=== PATIENT | male | born 1985 | race Caucasian/White ===

== ENCOUNTER 2016-09-10 16:13 | Emergency (ER) ==
[2016-09-10 16:19] VITALS: BP 145/88; TEMP 98.4; BMI 22.3
--- NOTE | 2016-09-10 16:43 | ED.PDOC ---
General ED Provider: Dr. REDD ALBERTO Chief Complaint: Hand Pain/Injury Stated Complaint: right hand, wrist pain Time Seen by Physician: 16:14 (fall) Mode of Arrival: Walk-In Information Source: Patient Nursing and Triage Documentation Reviewed and Agree: Yes Review of Systems - Review Of Systems Constitutional: Reports: No symptoms Eyes: Reports: No symptoms Ears, Nose, Mouth, Throat: Reports: No symptoms Respiratory: Reports: No symptoms Cardiac: Reports: No symptoms GI: Reports: No symptoms : Reports: No symptoms Musculoskeletal: Reports: Joint pain (right hand , wrist) Skin: Reports: No symptoms Neurological: Reports: No symptoms Endocrine: Reports: No symptoms Hematologic/Lymphatic: Reports: No symptoms All Other Systems: Reviewed and Negative Past Medical History - Past Medical History Previously Healthy: Yes Endocrine: Reports: None Cardiovascular: Reports: None Respiratory: Reports: None Hematological: Reports: None Gastrointestinal: Reports: None Genitourinary: Reports: None Neuro/Psych: Reports: None Musculoskeletal: Reports: None Cancer: Reports: None - Surgical History General Surgical History: Reports: None - Family History Family History: Reports: Unknown - Social History Smoking Status: Current some day smoker Hx Substance Use: No Alcohol Screening: None - Immunizations Tetanus Shot up to Date: Yes Physical Exam - Physical Exam Appearance: Well-appearing, No pain distress, Well-nourished Eyes: BLAYNE, EOMI, Conjunctiva clear ENT: Ears normal, Nose normal, Oropharynx normal Respiratory: Airway patent, Breath sounds clear, Breath sounds equal, Respirations nonlabored Cardiovascular: RRR, Pulses normal, No rub, No murmur GI/: Soft, Nontender, No masses, Bowel sounds normal, No Organomegaly Musculoskeletal: Limited ROM (4th, 5th digits tender limited range of motion , right elbow and shoulder are WNL) Skin: Warm, Dry, Normal color Neurological: Sensation intact, Motor intact, Reflexes intact, Cranial nerves intact, Alert, Oriented Psychiatric: Affect appropriate, Mood appropriate Critical Care Note - Critical Care Note Total Time (mins): 0 Course - Course Orders, Labs, Meds: Orders Category Date Time Status HAND, RIGHT 3 VIEWS Stat RADS 09/10/16 16:42 Ordered WRIST, RIGHT 3 VIEWS Stat RADS 09/10/16 16:42 Ordered Vital Signs: Temp Pulse Resp BP Pulse Ox 09/10/16 16:14 98.4 F 87 16 145/88 H 98 Departure - Departure Time of Disposition: 18:00 (BOXERS FRACTURE DISCUSSED AND FILM SHOWN TO PT GARFIELD HARRIS PRESENT ALONG WITH DEZ FOFANA GIVEN) Disposition: HOME SELF-CARE Discharge Problem: Injury of hand, Boxer's fracture Sprain of hand, right Qualifiers: Encounter type: initial encounter Qualifier Code: (S63.91XA) Sprain of unspecified part of right wrist and hand, initial encounter Sprain of wrist, right Qualifiers: Encounter type: initial encounter Qualifier Code: (S63.501A) Unspecified sprain of right wrist, initial encounter Instructions: Hand Sprain (ED), Wrist Sprain (ED), Wrist Fracture in Adults (ED ) Condition: Good Pt referred to PMD for follow-up: No Additional Instructions: Please call your Family Physician as soon as possible to schedule a follow-up appointment.YOU MUST SEE [facility] HAVE A BOXERS TYPE FRACTURE Prescriptions: Hydrocodone/Acetaminophen [Lead 5-325 Tablet] 1 each PO Q6HR PRN #12 tablet PRN Reason: PAIN Allergies/Adverse Reactions: Allergies No Known Allergies Allergy (Unverified 06/15/14 06:27) Home Medications: Ambulatory Orders Hydrocodone/Acetaminophen [Lead 5-325 Tablet] 1 each PO Q6HR PRN #12 tablet
--- NOTE | 2016-09-11 07:08 | DI ---
EXAM: Right wrist three-view HISTORY: Fall COMPARISON: None FINDINGS: There is a mildly displaced fracture of the proximal aspect fifth metacarpal with mild vo lar angulation of the distal fracture fragment. Remainder of the bones and joints are normal. There is soft tissue swelling laterally. IMPERSSION: Mildly displaced fracture of the fifth metacarpal.
--- NOTE | 2016-09-11 07:08 | DI ---
EXAM: Right hand three-view HISTORY: Trauma, fall COMPARISON: None FINDINGS: There is a mildly displaced fracture of the proximal aspect fifth metacarpal with mild vo lar angulation of the distal fracture fragment. Remainder of the bones and joints are normal. There is soft tissue swelling laterally. IMPERSSION: Mildly displaced fracture of the fifth metacarpal. Report faxed at time of dictation.
== END 2016-09-10 17:29 | disposition home or self-care (01) ==
LOC: ED 16:13
DX: S62.336A Displaced fracture of neck of fifth metacarpal bone, right hand, initial encounter for closed fracture (principal); S63.91XA Sprain of unspecified part of right wrist and hand, initial encounter; W19.XXXA Unspecified fall, initial encounter; F17.210 Nicotine dependence, cigarettes, uncomplicated
CPT/HCPCS: 99283

== ENCOUNTER 2017-05-11 10:30 | Emergency (ER) ==
[2017-05-11 10:36] VITALS: BP 113/52; TEMP 98.9
[2017-05-11] MEDS ORDERED: DUONEB NEB STA (10:54)
[2017-05-11] MEDS ORDERED: SOLU-MEDROL 125 MG IVP STA (10:54)
[2017-05-11 11:12] LABS: BASOPHILS % (AUTO) 0.5 % (0.0-3.0); EOSINOPHILS # (AUTO) 0.4 K/ul (0.0-0.7); HEMATOCRIT 43.7 % (42.0-52.0); HEMOGLOBIN 15.5 g/dl (14.0-18.0); IMMATURE GRANULOCYTE % (AUTO) 0.1 % (0.0-5.0); LYMPHOCYTES # (AUTO) 2.2 K/uL (0.60-3.4); LYMPHOCYTES % (AUTO) 29.3 (10.0-50.0); MEAN CORPUSCULAR HEMOGLOBIN 31.5 pg (27.0-31.0); MEAN CORPUSCULAR HGB CONC 35.5 (31.8-35.4); MEAN CORPUSCULAR VOLUME 88.8 fl (80.0-94.0); NEUTROPHILS # (AUTO) 3.9 K/ul (2.0-6.9); NEUTROPHILS % (AUTO) 52.1; PLATELET COUNT 178 10^3/uL (140-440); RED BLOOD COUNT 4.92 10^6/ul (4.70-6.10); WHITE BLOOD COUNT 7.54 K/ul (4.2-10.2)
--- NOTE | 2017-05-11 11:14 | DI ---
EXAM: PA and lateral views of the chest HISTORY: Short of breath COMPARISON: Chest Xray from 11/25/2007 FINDINGS: Lungs are clear with no lobar consolidation, failure, large effusion or significant atelec tasis. Cardiac and mediastinal silhouettes are unremarkable. No acute osseous or soft tissue abnorma lities. IMPRESSION: No active disease.
[2017-05-11 11:31] LABS: ALBUMIN 4.6 g/dL (3.4-5.0); ALBUMIN/GLOBULIN RATIO 1.39; ANION GAP 17.6; BILIRUBIN,TOTAL 0.27 mg/dL (0.00-1.20); BUN/CREATININE RATIO 8.13; CALCIUM 10.5 mg/dL (8.2-10.2); CREATININE 1.23 mg/dL (0.60-1.10); POTASSIUM 3.6 mmol/L (3.5-5.1); TOTAL PROTEIN 7.9 g/dL (6.4-8.2)
--- NOTE | 2017-05-11 12:00 | ED.PDOC ---
General ED Provider: Dr. KAIA MONTEZ Chief Complaint: Cough Stated Complaint: Pateint is a 31 year old male who states he has a history of anxiety comes to the Er with Head cold and conjestion starting yesterday. This morning he felt worse with difficulty breathing. Used sons inhailer but did not imrpove. Admits to smoking. Time Seen by Physician: 10:45 Mode of Arrival: Walk-In Information Source: Patient Exam Limitations: No limitations Nursing and Triage Documentation Reviewed and Agree: Yes Review of Systems - Review Of Systems Constitutional: Reports: Chills, Sweats Eyes: Reports: No symptoms Ears, Nose, Mouth, Throat: Reports: No symptoms Respiratory: Reports: Cough, Short of air, Wheezing Cardiac: Reports: No symptoms GI: Reports: No symptoms : Reports: No symptoms Musculoskeletal: Reports: No symptoms Skin: Reports: No symptoms Neurological: Reports: Anxiety Endocrine: Reports: No symptoms Hematologic/Lymphatic: Reports: No symptoms All Other Systems: Reviewed and Negative Past Medical History - Past Medical History Previously Healthy: Yes Endocrine: Reports: None Cardiovascular: Reports: None Respiratory: Reports: None Hematological: Reports: None Gastrointestinal: Reports: None Genitourinary: Reports: None Neuro/Psych: Reports: None Musculoskeletal: Reports: None Cancer: Reports: None - Surgical History General Surgical History: Reports: None - Family History Family History: Reports: Unknown - Social History Smoking Status: Current every day smoker, Light tobacco smoker Hx Substance Use: No Alcohol Screening: None Physical Exam - Physical Exam Appearance: Ill-appearing, Thin Eyes: BLAYNE, EOMI, Conjunctiva clear Neck: Supple Respiratory: Breath sounds equal, Breath sounds diminished, Respirations nonlabored, Wheezes Cardiovascular: Pulses normal, No rub, No murmur, Tachycardia GI/: Soft, Nontender, No masses, Bowel sounds normal, No Organomegaly Musculoskeletal: Normal strength, ROM intact, No edema, No calf tenderness Skin: Warm, Dry, Normal color Neurological: Sensation intact, Motor intact, Cranial nerves intact, Alert, Oriented Psychiatric: Affect appropriate, Mood appropriate Critical Care Note - Critical Care Note Total Time (mins): 0 Course - Course Hematology/Chemistry: 05/11/17 11:05 05/11/17 11:05 Orders, Labs, Meds: Lab Review 05/11/17 05/11/17 11:05 11:05 WBC 7.54 RBC 4.92 Hgb 15.5 Hct 43.7 MCV 88.8 MCH 31.5 H MCHC 35.5 H RDW Coeff of Renetta 12.9 Plt Count 178 Immature Gran % (Auto) 0.1 Neut % (Auto) 52.1 Lymph % (Auto) 29.3 [place] % (Auto) 13.0 H Eos % (Auto) 5.0 Baso % (Auto) 0.5 Immature Gran # (Auto) 0.0 Neut # 3.9 Lymph # 2.2 [place] # 1.0 Eos # 0.4 Baso # 0.0 Sodium 139 Potassium 3.6 Chloride 102 Carbon Dioxide 23 Anion Gap 17.6 BUN 10 Creatinine 1.23 H Estimated GFR (MDRD) 70.00 BUN/Creatinine Ratio 8.13 Glucose 103 H Calcium 10.5 H Total Bilirubin 0.27 AST 15 ALT 12 Alkaline Phosphatase 85 Total Protein 7.9 Albumin 4.6 Globulin 3.3 Albumin/Globulin Ratio 1.39 Orders Category Date Time Status NEBULIZER TREATMENT Stat CARDIO 05/11/17 10:55 Completed CBC W/ AUTO DIFF Stat LAB 05/11/17 11:05 Completed COMPREHENSIVE METABOLIC PANEL Stat LAB 05/11/17 11:05 Completed Ipratropium/Albuterol Neb [Duoneb] MEDS 05/11/17 10:54 Discontinued 1 vial NEB ONCE STA Methylprednisolone Sod Succ/Pf [Solu-Medrol 125 mg] MEDS 05/11/17 10:54 Discontinued 125 mg IVP ONCE STA CHEST, 2 VIEWS PA & LAT Stat RADS 05/11/17 10:57 Completed Medications Discontinued Medications Generic Name Dose Route Start Last Admin Trade Name Freq PRN Reason Stop Dose Admin Albuterol/Ipratropium 1 vial 05/11/17 10:54 05/11/17 11:05 Duoneb NEB 05/11/17 10:55 1 vial ONCE STA Administration Methylprednisolone Sodium Succinate 125 mg 05/11/17 10:54 05/11/17 11:16 Solu-Medrol 125 Mg IVP 05/11/17 10:55 125 mg ONCE STA Administration Vital Signs: Temp Pulse Resp BP Pulse Ox 05/11/17 10:30 98.9 F 119 H 24 113/52 L 99 Departure - Departure Time of Disposition: 11:58 Disposition: HOME SELF-CARE Discharge Problem: Bronchitis URI (upper respiratory infection) Qualifiers: URI type: unspecified viral URI Qualified Code(s): J06.9 - Acute upper respiratory infection, unspecified Instructions: How to Stop Smoking (ED), Acute Bronchitis (ED) Condition: Fair Pt referred to PMD for follow-up: Yes Additional Instructions: STOP smoking Take medications as prescribed Follow up with PCP in 3 days. Prescriptions: Albuterol Sulfate [Proair Hfa] 2 puff IH Q6H PRN #1 puff PRN Reason: Wheezing Azithromycin [Zithromax] 250 mg PO DIRECTED #6 tablet Methylprednisolone [Medrol Dosepak] 4 mg PO DIRECTED #1 pkg Allergies/Adverse Reactions: Allergies No Known Allergies Allergy (Verified 05/11/17 10:37) Home Medications: Ambulatory Orders Albuterol Sulfate [Proair Hfa] 2 puff IH Q6H PRN #1 puff 05/11/17 Azithromycin [Zithromax] 250 mg PO DIRECTED #6 tablet 05/11/17 Methylprednisolone [Medrol Dosepak] 4 mg PO DIRECTED #1 pkg 05/11/17 Disposition Discussed With: Patient
== END 2017-05-11 12:10 | disposition home or self-care (01) ==
LOC: ED 10:30
DX: J20.9 Acute bronchitis, unspecified (principal); J06.9 Acute upper respiratory infection, unspecified; F17.210 Nicotine dependence, cigarettes, uncomplicated
CPT/HCPCS: 36415; 80053; 85025; 94640; 96374; 99283

== ENCOUNTER 2017-05-16 12:15 | Emergency (ER) ==
[2017-05-16 12:23] VITALS: BP 132/89; TEMP 99.6; BMI 19.0
--- NOTE | 2017-05-16 13:12 | DI ---
EXAM: PA and lateral views of the chest HISTORY: Cough. COMPARISON: Chest x-ray 05/11/2017 and 11/25/2007 FINDINGS: The cardiomediastinal silhouette is normal. There is no pneumothorax or pleural effusion. There is no consolidation, nodule or mass. The osseous structures are unremarkable. IMPRESSION: No acute cardiopulmonary process
[2017-05-16 13:19] LABS: BASOPHILS % (AUTO) 0.2 % (0.0-3.0); EOSINOPHILS # (AUTO) 0.1 K/ul (0.0-0.7); EOSINOPHILS % (AUTO) 0.6 % (0.0-7.0); HEMATOCRIT 42.5 % (42.0-52.0); HEMOGLOBIN 15.7 g/dl (14.0-18.0); IMMATURE GRANULOCYTE % (AUTO) 0.3 % (0.0-5.0); LYMPHOCYTES # (AUTO) 2.5 K/uL (0.60-3.4); LYMPHOCYTES % (AUTO) 29.2 (10.0-50.0); MEAN CORPUSCULAR HEMOGLOBIN 31.4 pg (27.0-31.0); MEAN CORPUSCULAR HGB CONC 36.9 (31.8-35.4); MONOCYTES # (AUTO) 0.6 K/uL (0.4-2.0); MONOCYTES % (AUTO) 7.2 (0-10); NEUTROPHILS # (AUTO) 5.4 K/ul (2.0-6.9); NEUTROPHILS % (AUTO) 62.5; PLATELET COUNT 213 10^3/uL (140-440)
[2017-05-16 13:19] LABS: ABG PCO2 18.2 mmHg (35-45); ABG PH 7.587 (7.35-7.45)
[2017-05-16 13:20] LABS: ABG BASE EXCESS -4 (-2.0-2.0); ABG HCO3 17.3 (22.0-26.0); ABG TCO2 18 (22.0-28.0)
[2017-05-16 13:37] LABS: ALBUMIN 4.7 g/dL (3.4-5.0); ALBUMIN/GLOBULIN RATIO 1.52; ANION GAP 16.5; BILIRUBIN,TOTAL 0.83 mg/dL (0.00-1.20); BUN/CREATININE RATIO 14.63; CALCIUM 10.2 mg/dL (8.2-10.2); CREATININE 1.23 mg/dL (0.60-1.10); POTASSIUM 3.5 mmol/L (3.5-5.1); TOTAL PROTEIN 7.8 g/dL (6.4-8.2)
[2017-05-16 13:54] LABS: BILIRUBIN,URINE Negative (NEGATIVE); KETONES,URINE 2+ (NEGATIVE); LEUKOCYTE ESTERASE ,URINE Negative (NEGATIVE); NITRITE,URINE Negative (NEGATIVE); PH,URINE 7.5 (5-9); PROTEIN,URINE Trace (NEGATIVE); URINE, BLOOD Negative (NEGATIVE)
[2017-05-16 13:55] LABS: ADD URINE MICROSCOPIC YES
[2017-05-16 13:56] LABS: ABG BASE EXCESS -3 (-2.0-2.0); ABG HCO3 17.7 (22.0-26.0); ABG PCO2 16.9 mmHg (35-45); ABG PH 7.629 (7.35-7.45); ABG TCO2 18 (22.0-28.0)
[2017-05-16 13:58] LABS: COCAIN SCREEN,URINE NEGATIVE (NEGATIVE)
--- NOTE | 2017-05-16 15:29 | CT ---
EXAM: CTA of the chest. History: Short of breath Comparison: Chest radiograph 05/16/2017 Technique: Multiplanar CT images through the thorax were obtained following administration of IV con trast. MIP images and 3-D reconstructions were also acquired. Findings: Heart size is normal. No pericardial effusion. No pathologically enlarged thoracic lymph nodes. Great vessels are not well opacified but appear unremarkable. No pulmonary arterial filling defects. No consolidation. No pleural fluid and no pneumothorax. No suspicious lung nodules or lung masses. Within the visualized upper abdomen, no acute findings. No acute osseous abnormalities. Small round sclerotic lesion within the T9 vertebral body is nonspecific but probably represents a bone island Impression: 1. No pulmonary embolism. 2. No acute intrathoracic process.
--- NOTE | 2017-05-16 15:35 | ED.PDOC ---
General ED Provider: Dr. REDD ALBERTO Chief Complaint: Shortness of Air Stated Complaint: shortness of breath, anxious Time Seen by Physician: 12:22 (seen with dilip at all times ) Mode of Arrival: Walk-In Information Source: Patient Exam Limitations: No limitations [facility] Nursing and Triage Documentation Reviewed and Agree: Yes Respiratory Complaint Exam - Shortness of Air Complaint/Exam Onset/Duration: 2 days Symptoms Are: Still present Timing: Constant Initial Severity: Mild Current Severity: Mild Aggravating: Reports: None Alleviating: Reports: Spontaneous resolution Associated Signs and Symptoms: Reports: Cough Related History: Reports: Similar episode History of Healthcare-Acquired Pneumonia: No Pulmonary Embolism Risk Factors: Reports: None Cardiac Risk Factors: Reports: None Pseudomonas Risk Factors: Reports: None Tuberculosis Risk Factors: Reports: None Home Oxygen Use: No Recent Stress Test: No Recent Echo/LV Function: No Respiratory Distress: None Stridor Present: No Tracheal Deviation: No Subcutaneous Emphysema: No Accessory Muscle Use: No Retractions: Not Present Diminished Breath Sounds: No Prolonged Expiratory Phase: No Unable to Speak Full Sentences: No Fatigue: No Leg Swelling: No Seamus's Sign Present: No Grunting Respirations: No Kussmaul Respirations: No Differential Diagnoses: Pulmonary Edema, Pneumonia, Pneumothorax, Pulmonary Embolism, Bronchitis, URI Review of Systems - Review Of Systems Constitutional: Reports: No symptoms Eyes: Reports: No symptoms Ears, Nose, Mouth, Throat: Reports: No symptoms Respiratory: Reports: Short of air Cardiac: Reports: No symptoms GI: Reports: No symptoms : Reports: No symptoms Musculoskeletal: Reports: No symptoms Skin: Reports: No symptoms Neurological: Reports: Anxiety Endocrine: Reports: No symptoms Hematologic/Lymphatic: Reports: No symptoms All Other Systems: Reviewed and Negative Past Medical History - Past Medical History Previously Healthy: Yes Endocrine: Reports: None Cardiovascular: Reports: None Respiratory: Reports: None Hematological: Reports: None Gastrointestinal: Reports: None Genitourinary: Reports: None Neuro/Psych: Reports: None Musculoskeletal: Reports: None Cancer: Reports: None - Surgical History General Surgical History: Reports: None - Family History Family History: Reports: Unknown - Social History Smoking Status: Former smoker, Light tobacco smoker Hx Substance Use: No Alcohol Screening: Occasionally Physical Exam - Physical Exam Appearance: Well-appearing, No pain distress, Well-nourished Eyes: BLAYNE, EOMI, Conjunctiva clear ENT: Ears normal, Nose normal, Oropharynx normal Respiratory: Airway patent, Breath sounds clear, Breath sounds equal, Respirations nonlabored Cardiovascular: RRR, Pulses normal, No rub, No murmur GI/: Soft, Nontender, No masses, Bowel sounds normal, No Organomegaly Musculoskeletal: Normal strength, ROM intact, No edema, No calf tenderness Skin: Warm, Dry, Normal color Neurological: Sensation intact, Motor intact, Reflexes intact, Cranial nerves intact, Alert, Oriented Psychiatric: Affect appropriate, Mood appropriate Interpretation - Radiology Interpretation Radiology Interpretation By: Radiologist Radiology Results: Negative Exam Interpreted: CXR, CT Scan Re-Evaluation - Re-Evaluation Time of Re-Evaluation: 14:00 (bibi at bedside discussed postive drug screen for Methamph pt denied using any drugs) Status: Improved Vital Signs Stable: Yes Pain Level: 0 Appearance: NAD Lungs: Clear Skin: Warm and Dry Neuro: Alert and Oriented X3 CV: RRR - Re-Evaluation Time of Re-Evaluation: 15:37 (bibi at bedside discussed ct scan results and ABG ) Status: Improved Vital Signs Stable: Yes Pain Level: 0 Appearance: NAD Skin: Warm and Dry Neuro: Alert and Oriented X3 CV: RRR Critical Care Note - Critical Care Note Total Time (mins): 0 Course - Course Hematology/Chemistry: 05/16/17 13:03 05/16/17 13:03 Orders, Labs, Meds: Lab Review 05/16/17 05/16/17 05/16/17 12:53 13:03 13:03 WBC 8.70 RBC 5.00 Hgb 15.7 Hct 42.5 MCV 85.0 MCH 31.4 H MCHC 36.9 H RDW Coeff of Renetta 12.8 Plt Count 213 Immature Gran % (Auto) 0.3 Neut % (Auto) 62.5 Lymph % (Auto) 29.2 [place] % (Auto) 7.2 Eos % (Auto) 0.6 Baso % (Auto) 0.2 Immature Gran # (Auto) 0.0 Neut # 5.4 Lymph # 2.5 [place] # 0.6 Eos # 0.1 Baso # 0.0 D-Dimer (Manual) Puncture Site Rrad O2 Saturation 86.0 L ABG pH 7.587 H* ABG pCO2 18.2 L ABG pO2 41.0 L* ABG HCO3 17.3 L ABG Total CO2 18 L ABG Base Excess -4 L Connor Test + FiO2 % 21.0 Sodium 141 Potassium 3.5 Chloride 107 Carbon Dioxide 21 Anion Gap 16.5 BUN 18 Creatinine 1.23 H Estimated GFR (MDRD) 70.00 BUN/Creatinine Ratio 14.63 Glucose 90 Calcium 10.2 Total Bilirubin 0.83 AST 16 ALT 19 Alkaline Phosphatase 69 Total Protein 7.8 Albumin 4.7 Globulin 3.1 Albumin/Globulin Ratio 1.52 Urine Color Urine Clarity Urine pH Ur Specific [place] Urine Protein Urine Glucose (UA) Urine Ketones Urine Blood Urine Nitrite Urine Bilirubin Urine Urobilinogen Ur Leukocyte Esterase Urine Microscopic RBC Ur Squamous Epith Cells Urine Mucus Urine Opiates Screen Ur Oxycodone Screen Urine Methadone Screen Ur Propoxyphene Screen Ur Barbiturates Screen U Tricyclic Antidepress Ur Phencyclidine Scrn Ur Amphetamine Screen U Methamphetamines Scrn U Benzodiazepines Scrn Urine Cocaine Screen U Cannabinoids Screen 05/16/17 05/16/17 05/16/17 13:40 13:40 13:40 WBC RBC Hgb Hct MCV MCH MCHC RDW Coeff of Renetta Plt Count Immature Gran % (Auto) Neut % (Auto) Lymph % (Auto) [place] % (Auto) Eos % (Auto) Baso % (Auto) Immature Gran # (Auto) Neut # Lymph # [place] # Eos # Baso # D-Dimer (Manual) Puncture Site Rbrach O2 Saturation 99.0 ABG pH 7.629 H* ABG pCO2 16.9 L ABG pO2 114.0 H ABG HCO3 17.7 L ABG Total CO2 18 L ABG Base Excess -3 L Connor Test FiO2 % 21.0 Sodium Potassium Chloride Carbon Dioxide Anion Gap BUN Creatinine Estimated GFR (MDRD) BUN/Creatinine Ratio Glucose Calcium Total Bilirubin AST ALT Alkaline Phosphatase Total Protein Albumin Globulin Albumin/Globulin Ratio Urine Color Yellow Urine Clarity Clear Urine pH 7.5 Ur Specific [place] 1.015 Urine Protein Trace Urine Glucose (UA) Negative Urine Ketones 2+ Urine Blood Negative Urine Nitrite Negative Urine Bilirubin Negative Urine Urobilinogen 0.2 Ur Leukocyte Esterase Negative Urine Microscopic RBC 0-2 Ur Squamous Epith Cells Not present Urine Mucus 1+ Urine Opiates Screen Negative Ur Oxycodone Screen Negative Urine Methadone Screen Negative Ur Propoxyphene Screen Negative Ur Barbiturates Screen Negative U Tricyclic Antidepress Negative Ur Phencyclidine Scrn Negative Ur Amphetamine Screen Negative U Methamphetamines Scrn Positive U Benzodiazepines Scrn Negative Urine Cocaine Screen Negative U Cannabinoids Screen Positive 05/16/17 14:00 WBC RBC Hgb Hct MCV MCH MCHC RDW Coeff of Renetta Plt Count Immature Gran % (Auto) Neut % (Auto) Lymph % (Auto) [place] % (Auto) Eos % (Auto) Baso % (Auto) Immature Gran # (Auto) Neut # Lymph # [place] # Eos # Baso # D-Dimer (Manual) 112.60 Puncture Site O2 Saturation ABG pH ABG pCO2 ABG pO2 ABG HCO3 ABG Total CO2 ABG Base Excess Connor Test FiO2 % Sodium Potassium Chloride Carbon Dioxide Anion Gap BUN Creatinine Estimated GFR (MDRD) BUN/Creatinine Ratio Glucose Calcium Total Bilirubin AST ALT Alkaline Phosphatase Total Protein Albumin Globulin Albumin/Globulin Ratio Urine Color Urine Clarity Urine pH Ur Specific [place] Urine Protein Urine Glucose (UA) Urine Ketones Urine Blood Urine Nitrite Urine Bilirubin Urine Urobilinogen Ur Leukocyte Esterase Urine Microscopic RBC Ur Squamous Epith Cells Urine Mucus Urine Opiates Screen Ur Oxycodone Screen Urine Methadone Screen Ur Propoxyphene Screen Ur Barbiturates Screen U Tricyclic Antidepress Ur Phencyclidine Scrn Ur Amphetamine Screen U Methamphetamines Scrn U Benzodiazepines Scrn Urine Cocaine Screen U Cannabinoids Screen Orders Category Date Time Status ABG DRAW REQUEST Stat CARDIO 05/16/17 12:53 Completed ABG DRAW REQUEST Stat CARDIO 05/16/17 13:40 Completed EKG-(ED ONLY) Stat CARDIO 05/16/17 12:53 Completed IV ACCESS ONCE CARE 05/16/17 14:23 Active NPO REMINDER: IMAGING ONCE CARE 05/16/17 14:23 Completed ABG Stat LAB 05/16/17 12:53 Completed ABG Stat LAB 05/16/17 13:40 Completed CBC W/ AUTO DIFF Stat LAB 05/16/17 13:03 Completed COMPREHENSIVE METABOLIC PANEL Stat LAB 05/16/17 13:03 Completed D-DIMER Stat LAB 05/16/17 14:00 Completed DRUG SCREEN (RAPID FOR ED) [DRUG SCREEN, URINE, RAPID] LAB 05/16/17 13:40 Completed Stat MOLECULAR GROUP A STREP Stat LAB 05/16/17 13:03 Results STREP SCREEN Stat LAB 05/16/17 13:03 Results URINALYSIS C & S IF INDICATED Stat LAB 05/16/17 13:40 Completed CHEST, 2 VIEWS PA & LAT Stat RADS 05/16/17 12:[address] CHEST PE PROTOCOL Stat RADS 05/16/17 14:23 Completed Vital Signs: Temp Pulse Resp BP Pulse Ox 05/16/17 12:20 99.6 F 90 22 132/89 100 Departure - Departure Time of Disposition: 15:38 Disposition: HOME SELF-CARE Discharge Problem: Shortness of breath Instructions: Dyspnea (ED) Condition: Good Pt referred to PMD for follow-up: Yes Additional Instructions: Please call your Family Physician as soon as possible to schedule a follow-up appointment. Allergies/Adverse Reactions: Allergies No Known Allergies Allergy (Verified 05/16/17 12:17) Home Medications: Ambulatory Orders Albuterol Sulfate [Proair Hfa] 2 puff IH Q6H PRN #1 puff 05/11/17 Guaifenesin/Pseudoephedrne HCl [Mucinex D ER Tablet] 1 each PO 05/16/17
== END 2017-05-16 16:13 | disposition home or self-care (01) ==
LOC: ED 12:15
DX: R06.02 Shortness of breath (principal); R05 Cough; F17.210 Nicotine dependence, cigarettes, uncomplicated
CPT/HCPCS: 36415; 80053; 80306; 81001; 82803; 85025; 85379; 87651; 87880; 93005; 93010; 99284

== ENCOUNTER 2017-07-07 10:28 | Observation (INO) ==
[2017-07-07] MEDS ORDERED: ZOFRAN 4 MG/2 ML ONE (10:40)
[2017-07-07] MEDS ORDERED: ZOFRAN 4 MG/2 ML IVP STA ×2 (10:43→12:39)
[2017-07-07] MEDS ORDERED: SODIUM CHLORIDE 1,000 ML IV STA ×2 (10:44→11:46)
--- NOTE | 2017-07-07 11:30 | CT ---
EXAM: CT of the chest without contrast. HISTORY: Cough. COMPARISON: 05/16/2017. TECHNIQUE: Contiguous axial images were obtained from the lung apices to the upper abdomen. Study w as performed without contrast. Sagittal and coronal reformats were reviewed. FINDINGS: Evaluation is limited without contrast. The lung windows show no lobar consolidation or effusion. There is no pleural thickening. The pulmo nary interstitium appears normal. There is a calcified granuloma in the left lung base. No suspicio us nodules are identified. The airways are widely patent. The heart size is within normal limits. There is no significant mediastinal or hilar adenopathy. There is no axillary adenopathy. Limited v iews of the upper abdomen are unremarkable. There are no masses, free fluid or free air. The osseous structures are normal for age. IMPRESSION: No acute pulmonary disease. Minimal granulomatous change.
--- NOTE | 2017-07-07 12:03 | CT ---
EXAM: Noncontrast CT of the abdomen and pelvis. HISTORY: Abdominal pain. Recent appendectomy. COMPARISON: None. TECHNIQUE: Contiguous axial images at 3 mm intervals were obtained from lung bases through the pelvi s. No contrast was given. Coronal reformats were reviewed. FINDINGS: The study is limited without contrast. CHEST: The lung bases show no lobar consolidation or effusion. The heart size is within normal limi ts. ABDOMEN: Evaluation of the soft tissue organs is limited without contrast. LIVER: Noncontrast images of the liver show no solid mass lesion or intrahepatic ductal dilatation. BILIARY: The gallbladder is normally distended. No gallstones are noted. No pericholecystic fluid or inflammation. The common bile duct is normal. SPLEEN: The spleen is unremarkable. PANCREAS: The pancreas shows no mass lesion or peripancreatic inflammation. ADRENAL GLANDS: The adrenal glands are normal. RENAL: The kidneys show no hydronephrosis or nephrolithiasis. There are no obstructing ureteral sto miller. No solid mass lesions are identified. RETROPERITONEUM: The aorta is unopacified. No aneurysm is identified. No significant aortic calcif ications are seen. There is no retroperitoneal or mesenteric adenopathy. BOWEL: The bowel is unopacified. There is no obstruction or inflammatory change. There is no free fluid or free air. No significant inflammatory changes are seen. The appendix is absent. There is no fluid or inflammation in the right lower quadrant. No evidence of an abscess. PELVIS: BLADDER: The bladder is not well distended which limits evaluation.. GENITOURINARY STRUCTURES: The prostate is unremarkable. OSSEOUS STRUCTURES: The osseous structures are normal for age. IMPRESSION 1. No acute intra-abdominal abnormality. Limited study without contrast. No obstructing ureteral s tones. 2. Post appendectomy. There are clips in the right lower quadrant. No fluid, inflammation or evide nce of abscess. 3. Limited evaluation of the bladder due to poor distension.
--- NOTE | 2017-07-07 12:36 | ED.PDOC ---
General ED Provider: Dr. REDD ALBERTO Chief Complaint: Nausea/Vomiting Stated Complaint: abdominal vomiting, diarrhea Time Seen by Physician: 10:30 (seen with rachel ) Mode of Arrival: Walk-In Information Source: Patient Exam Limitations: No limitations Primary Care Provider: [facility] Nursing and Triage Documentation Reviewed and Agree: Yes GI Complaint Exam - Abdominal Pain Complaint/Exam Onset: Gradual Duration: 1 day Symptoms Are: Still present Timing: Intermittent Initial Severity: Moderate Current Severity: Moderate Location of Pain: Diffuse Character: Reports: Cramping Aggravating: Reports: Food Alleviating: Reports: None Associated Signs and Symptoms: Reports: Cough, Nausea, Vomiting, Diarrhea. Denies: Diaphoresis, Fever, Chest pain, Dizziness, Back pain, Constipation, Blood in stool, Dysuria, Urinary frequency, Decreased urine output, Decreased appetite, Discharge, Decreased activity AAA Risk Factors: Reports: None Cardiac Risk Factors: Reports: None Testicular Torsion Risk Factors: Reports: None Surgical Obstruction Risk Factors: Reports: None Related Surgical History: Reports: None Abdominal Findings: Present: None Differential Diagnoses: Appendicitis, Bowel Obstruction, Constipation, Gastroenteritis, Pancreatitis Review of Systems - Review Of Systems Constitutional: Reports: Malaise, Weakness Eyes: Reports: No symptoms Ears, Nose, Mouth, Throat: Reports: No symptoms Respiratory: Reports: No symptoms Cardiac: Reports: No symptoms GI: Reports: Abdominal pain, Diarrhea, Difficulty swallowing, Nausea : Reports: No symptoms Musculoskeletal: Reports: No symptoms Skin: Reports: No symptoms Neurological: Reports: No symptoms Endocrine: Reports: No symptoms Hematologic/Lymphatic: Reports: No symptoms All Other Systems: Reviewed and Negative Past Medical History - Past Medical History Previously Healthy: Yes Endocrine: Reports: None Cardiovascular: Reports: None Respiratory: Reports: None Hematological: Reports: None Gastrointestinal: Reports: None Genitourinary: Reports: None Neuro/Psych: Reports: None Musculoskeletal: Reports: None Cancer: Reports: None - Surgical History General Surgical History: Reports: None - Family History Family History: Reports: Unknown - Social History Smoking Status: Former smoker, Light tobacco smoker Hx Substance Use: No Alcohol Screening: Occasionally Physical Exam - Physical Exam Appearance: Well-appearing, No pain distress, Well-nourished Eyes: BLAYNE, EOMI, Conjunctiva clear ENT: Ears normal, Nose normal, Oropharynx normal Respiratory: Airway patent, Breath sounds clear, Breath sounds equal, Respirations nonlabored Cardiovascular: RRR, Pulses normal, No rub, No murmur GI/: Soft, Nontender, No masses, Bowel sounds normal, No Organomegaly Musculoskeletal: Normal strength, ROM intact, No edema, No calf tenderness Skin: Warm, Dry, Normal color Neurological: Sensation intact, Motor intact, Reflexes intact, Cranial nerves intact, Alert, Oriented Psychiatric: Affect appropriate, Mood appropriate Interpretation - Radiology Interpretation Radiology Interpretation By: Radiologist Radiology Results: No acute changes Physician Notification - Case Discussed Physician Notified: pmd Time of Notification: 12:36 Admit To: Inpatient Critical Care Note - Critical Care Note Total Time (mins): 0 Course - Course Hematology/Chemistry: 07/07/17 10:50 07/07/17 10:50 Orders, Labs, Meds: Lab Review 07/07/17 07/07/17 07/07/17 10:50 10:50 10:50 WBC 13.89 H RBC 4.69 L Hgb 14.7 Hct 42.2 MCV 90.0 MCH 31.3 H MCHC 34.8 RDW Coeff of Renetta 13.0 Plt Count 210 Immature Gran % (Auto) 1.5 Neut % (Auto) 75.4 Lymph % (Auto) 15.8 Trinity % (Auto) 6.3 Eos % (Auto) 0.4 Baso % (Auto) 0.6 Immature Gran # (Auto) 0.2 Neut # 10.5 H Lymph # 2.2 Trinity # 0.9 Eos # 0.1 Baso # 0.1 Sodium 144 Potassium 4.0 Chloride 103 Carbon Dioxide 30 Anion Gap 15.0 BUN 12 Creatinine 0.99 Estimated GFR (MDRD) 89.00 BUN/Creatinine Ratio 12.12 Glucose 118 H Lactic Acid Calcium 9.8 Total Bilirubin 0.33 AST 50 H ALT 123 H Alkaline Phosphatase 72 Total Protein 7.5 Albumin 4.4 Globulin 3.1 Albumin/Globulin Ratio 1.42 Procalcitonin < 0.05 Influenza A (Rapid) Influenza B (Rapid) 07/07/17 07/07/17 10:55 11:00 WBC RBC Hgb Hct MCV MCH MCHC RDW Coeff of Renetta Plt Count Immature Gran % (Auto) Neut % (Auto) Lymph % (Auto) Trinity % (Auto) Eos % (Auto) Baso % (Auto) Immature Gran # (Auto) Neut # Lymph # Trinity # Eos # Baso # Sodium Potassium Chloride Carbon Dioxide Anion Gap BUN Creatinine Estimated GFR (MDRD) BUN/Creatinine Ratio Glucose Lactic Acid 22.7 H Calcium Total Bilirubin AST ALT Alkaline Phosphatase Total Protein Albumin Globulin Albumin/Globulin Ratio Procalcitonin Influenza A (Rapid) Negative Influenza B (Rapid) Negative Orders Category Date Time Status EKG-(ED ONLY) Stat CARDIO 07/07/17 10:42 Completed ED IV/MEDIPORT/POWERPORT .ONCE EMERGENCY 07/07/17 10:42 Active BLOOD CULTURE Stat LAB 07/07/17 11:05 Received CBC W/ AUTO DIFF Stat LAB 07/07/17 10:50 Completed COMPREHENSIVE METABOLIC PANEL Stat LAB 07/07/17 10:50 Completed LACTIC ACID Stat LAB 07/07/17 10:55 Completed MOLECULAR GROUP A STREP Stat LAB 07/07/17 11:00 Results PROCALCITONIN Stat LAB 07/07/17 10:50 Completed RAPID FLU A/B Stat LAB 07/07/17 11:00 Completed STREP SCREEN Stat LAB 07/07/17 11:00 Results URINALYSIS C & S IF INDICATED Stat LAB 07/07/17 10:42 Uncollected 0.9 % Sodium Chloride [Saline Flush] MEDS 07/07/17 10:42 Active 1 syr IVF PRN PRN Ondansetron HCl/Pf [Zofran 4 mg/2 ml] MEDS 07/07/17 10:40 Discontinued 4 mg .ROUTE .STK-MED ONE Ondansetron HCl/Pf [Zofran 4 mg/2 ml] MEDS 07/07/17 10:43 Discontinued 4 mg IVP ONCE STA Sodium Chloride 0.9% [Sodium Chloride] 1,000 ml MEDS 07/07/17 10:44 Discontinued IV BOLUS Sodium Chloride 0.9% [Sodium Chloride] 1,000 ml MEDS 07/07/17 11:[address] ABDOMEN/PELVIS WO CONTRAST Stat RADS 07/07/17 10:[address] CHEST W/O CONTRAST Stat RADS 07/07/17 10:42 Completed Medications Generic Name Dose Route Start Last Admin Trade Name Freq PRN Reason Stop Dose Admin Sodium Chloride 1,000 mls @ 1,000 mls/hr 07/07/17 11:46 07/07/17 11:48 Sodium Chloride IV 07/07/17 12:45 1,000 mls/hr BOLUS STA Administration Sodium Chloride 1 syr 07/07/17 10:42 07/07/17 11:48 Saline Flush IVF 1 syr PRN PRN Administration To flush IV Discontinued Medications Generic Name Dose Route Start Last Admin Trade Name Desmond PRN Reason Stop Dose Admin Sodium Chloride 1,000 mls @ 1,000 mls/hr 07/07/17 10:44 07/07/17 10:52 Sodium Chloride IV 07/07/17 11:43 1,000 mls/hr BOLUS STA Administration Ondansetron HCl 4 mg 07/07/17 10:43 07/07/17 10:52 Zofran 4 Mg/2 Ml IVP 07/07/17 10:44 4 mg ONCE STA Administration Vital Signs: Temp Pulse Resp BP Pulse Ox 07/07/17 10:28 96.2 F L 74 18 107/63 98 Departure - Departure Time of Disposition: 12:36 Disposition: ADMITTED INPATIENT Discharge Problem: Nausea, Vomiting, Dehydration Instructions: Dehydration (ED) Condition: Good Pt referred to PMD for follow-up: Yes Additional Instructions: Please call your Family Physician as soon as possible to schedule a follow-up appointment. Allergies/Adverse Reactions: Allergies steroids Adverse Reaction (Uncoded 07/07/17 10:34) Home Medications: Ambulatory Orders 1 [No Reported Medications] 07/07/17
[2017-07-07] MEDS ORDERED: LOMOTIL PO PRN (12:39)
[2017-07-07] MEDS ORDERED: ZOFRAN 4 MG/2 ML IVP PRN (12:39)
[2017-07-07 13:25] VITALS: BMI 20.9
[2017-07-07] MEDS: SODIUM CHLORIDE 1,000 ML IV SCH ×2 (14:05→22:52)
[2017-07-07] MEDS: PROTONIX IV IVP SCH (14:05)
[2017-07-07] MEDS ORDERED: TYLENOL PO STA (19:49)
[2017-07-08] MEDS: SODIUM CHLORIDE 1,000 ML IV SCH (05:42)
[2017-07-08] MEDS: PROTONIX IV IVP SCH (08:56)
[2017-07-08 09:58] VITALS: BP 104/64; TEMP 98
--- NOTE | 2017-07-08 14:19 | US ---
EXAM: Abdominal ultrasound limited HISTORY: Elevated liver enzymes COMPARISON: CT abdomen pelvis 07/07/[address] chest same day TECHNIQUE: Sonographic and limited Doppler evaluation of the right upper quadrant was performed. FINDINGS: The liver is normal in echogenicity and measures 14.0 cm. The portal vein is patent. The gallbladder demonstrates no stones or sludge. The gallbladder wall measures 0.3 cm in thickness wit h no pericholecystic fluid. Common bile duct is unremarkable and measures 0.3 cm in diameter. The pa ncreas is unremarkable in appearance. Right kidney measures 11.4 x 3.7 x 4.4 cm with cortical thickne ss of 1.3 cm. IMPRESSION: No acute abnormality of the abdomen to account for patient's symptoms.
--- NOTE | 2017-07-16 15:07 | PN ---
DATE OF SERVICE: 07/08/17 SUBJECTIVE: The patient was admitted with acute gastritis, gastroenteritis and dehydration. Nausea and vomiting is better. Hgb has dropped from the 14.7 to the 12.5. Was able to keep the clear liquids down. AST and ALT is better from 123 to 85. Drug screen was positive for marijuana. REVIEW OF SYSTEMS: CONSTITUTIONAL: No fever, no chills. HEENT: Normal. ENDOCRINE: No weight gain, no weight loss. CVS: No angina symptoms. No CHF symptoms. No palpitations. No atypical chest pain for CAD. No shortness of breath. No PND, no orthopnea. RESPIRATORY: No cough, no hemoptysis. GI: No nausea, no vomiting. No abdominal pain. : No hematuria. No polyuria. MUSCULOSKELETAL:. No joint swelling. PSYCHIATRIC: Not anxious. No depression. No suicidal thoughts. No homicidal thoughts. SKIN: Intact. No rash. PHYSICAL EXAMINATION: V/S: blood pressure 107/63, respiratory rate 16, heart rate 83, temperature 98.6 with saturation 97. GENERAL: Cachetic male laying in the bed and not in any distress. HEENT: Normocephalic, atraumatic. Mucosa dry. Pallor positive. No icterus. NECK: Supple. No JVD, no carotid bruit. No lymphadenopathy. LUNGS: Clear to auscultation. No rales or rhonchi. HEART: S1, S2 normal. No S3. No murmur, gallop or regurgitation. ABDOMEN: Soft, epigastric discomfort present. Bowel sounds active. No rigidity. No rebound or guarding. No CVA tenderness. EXTREMITIES: No clubbing, cyanosis or pedal edema. MUSCULOSKELETAL: No joint swelling. NEUROLOGIC: Awake, alert, oriented times three. No focal deficit. LYMPHATIC: No lymph nodes palpable. SKIN: Intact. LABS: WBC 9.79, hgb 12.5, hct 35.7, plt count 179, sodium 142, potassium 3.6, chloride 109, bicarb 26, BUN 10, creatinine 0.81, glucose 118. ASSESSMENT: 1. Acute gastritis 2. Dehydration 3. Elevated liver enzymes 4. History of marijuana use 5. Anemia probably from the hemodilution versus GI bleed PLAN: 1. Advance diet to soft diet and advance as tolerated 2. Decreased IV fluids 3. Protonix TIME SPENT: More than 35 minutes MTDD
--- NOTE | 2017-08-06 11:07 | HP ---
DATE OF SERVICE: 07/07/17 CHIEF COMPLAINT: Nausea, vomiting, not able to keep anything down. She is HISTORY OF PRESENT ILLNESS: He has complaints of nausea, vomiting with chills and diarrhea since two o'clock in the morning. She had some supper outside and started having nausea and is not able to keep anything down not even water or whatever he was eating. Otherwise, no bloody and nonbilious. He was having watery diarrhea. No blood in the diarrhea. He came to the emergency room and was seen by in the emergency room. He had CT of the abdomen and pelvis. Ct of the chest did not show any acute findings. Lactic acid was elevated. White count was 13,000. Even after given IV fluids and Zofran, the patient was still not able to keep anything down. At that time, the patient is admitted to the hospital for acute food poisoning and gastroenteritis and dehydration. REVIEW OF SYSTEMS: CONSTITUTIONAL: Weakness, tiredness. No fever, no chills. HEENT: Normal. ENDOCRINE: No weight gain; no weight loss. CVS: No chest pain. No PND, no orthopnea. No shortness of breath. No PND, no orthopnea. RESPIRATORY: No cough, no congestion. No hemoptysis. GI: Nausea, vomiting, abdominal cramps. No melena. Not able to keep anything down. : No hematuria. No polyuria. MUSCULOSKELETAL: No joint swelling. PSYCHIATRIC: Not anxious. No depression. No suicidal thoughts. No homicidal thoughts. SKIN: Intact, no open lesions. PAST MEDICAL HISTORY: Anxiety Substance use/occasional marijuana Alcohol occasionally PAST SURGICAL HISTORY: Tonsillectomy Appendectomy PERSONAL HISTORY: Does smoke. FAMILY HISTORY: Significant for the heart problems. MEDICATIONS: None. ALLERGIES: Allergic to steroids. PHYSICAL EXAMINATION: Sick looking man lying in the bed. Not in distress. The patient looks dehydrated. V/S: Blood pressure 107/63, respiratory rate 18, heart rate 74, temperature 98.6 , saturation 98. HEENT: Atraumatic, normocephalic. No scleral icterus. NECK: Supple. No JVD, no bruit. No lymphadenopathy. No thyromegaly. HEART: S1, S2 normal. No murmur. No cyanosis or clubbing. No ascites. LUNGS: Clear to auscultation. No rales or rhonchi. ABDOMEN: Epigastric tenderness. Bowel sounds are hyperactive. No CVA tenderness. No rigidity or guarding. EXTREMITIES: No cyanosis, clubbing or pedal edema. MUSCULOSKELETAL: Normal joints, no swelling. NEUROLOGIC: Normal. SKIN: Intact; no open lesions. LYMPHATIC: No lymph nodes palpable. LABS: White count 13.89, hemoglobin 14.7, hematocrit 42.2, platelet count 210, sodium 144, potassium 4.0, chloride 103, bicarb 30, BUN 12, creatinine 0.99, glucose 118, lactic acid 22.7, AST 50, ALT 123. ASSESSMENT: 1. NAUSEA, VOMITING. ACUTE FOOD POISONING. 2. ELEVATED LEUKOCYTES 3. DEHYDRATION PLAN: 1. Admit the patient to the regular floor. 2. CBC, CMP today and daily. 3. NPO. 4. IV fluids. 5. Zofran prn. 6. Protonix. 7. I will follow up with the patient in daily rounds. Time spent with the patient is more than 70 minutes today. MTDD
--- NOTE | 2017-09-13 11:15 | DS ---
DATE OF SERVICE: 07/08/17 FINAL DIAGNOSIS: 1. ACUTE GASTRITIS 2. DEHYDRATION 3. ELEVATED LIVER ENZYMES 4. HISTORY OF MARIJUANA USE 5. ANEMIA, PROBABLY FROM THE HEMODILUTION PLAN: 1. Discharge the patient home. 2. Medications sent to [facility] Zofran 4 mg twice a day for five days. 3. Soft diet. 4. Increase hydration. 5. No greasy food. 6. Follow up with [facility] within 4 to 5 days. DISEASE SPECIFIC EDUCATION: About the gastritis, dehydration was discussed. He verbalized understanding. HOSPITAL COURSE: Hoang Horton, who is a 32 year old male, came to the emergency room with nausea, vomiting, chills, and diarrhea since the morning. He had been trying to drink and he immediately throws it back up. He was seen by Dr. Quinn in the emergency room. Flu was negative. White count was 13.89, glucose 118, slightly elevated AST 50 and ALT 123. Lactic acid was 22.7. Urinalysis was negative. Toxicology screen was positive for Cannibis. CT of the abdomen and pelvis done which showed no acute intraabdominal pathology. Status post appendectomy. Gallbladder was normal. CT of the chest was done, as the patient was having some epigastric discomfort. Minimal granulomatous changes. No acute findings. Ultrasound of the abdomen was also done and it showed no liver pathology, which was normal. IV fluids, Zofran was given. With the given treatment, the patient started feeling better. Protonix did help him and the Zofran did help him. He was then started on the clear liquids and was able to keep it down. As the patient was keeping the clear liquids down , the patient was discharged to home. By the next day the white count was towards normal. No fever. He was advised to keep to a soft diet for 3 to 4 days. TIME SPENT: MORE THAN 65 MINUTES MTDD
== END 2017-07-08 15:40 | disposition home or self-care (01) ==
LOC: ED 10:28 → MEDSURG B 12:40 → INTOOBSV 12:40
PROVIDERS: ADMIT Emergency Medicine; ATTEND Emergency Medicine
DX: K29.00 Acute gastritis without bleeding (principal); R74.8 Abnormal levels of other serum enzymes; D64.9 Anemia, unspecified; E86.0 Dehydration; F12.90 Cannabis use, unspecified, uncomplicated; R10.816 Epigastric abdominal tenderness; R13.10 Dysphagia, unspecified
CPT/HCPCS: 36415; 80053; 80306; 81001; 83605; 84145; 85025; 87040; 87651; 87804; 87880; 93005; 93010; 96361; 96374; 99217; 99220; 99285

== ENCOUNTER 2017-08-06 09:16 | Outpatient (CLI) ==
[2017-08-06 09:54] LABS: BASOPHILS # (AUTO) 0.1 K/uL (0-0.2); BASOPHILS % (AUTO) 0.7 % (0.0-3.0); EOSINOPHILS # (AUTO) 0.3 K/ul (0.0-0.7); EOSINOPHILS % (AUTO) 4.2 % (0.0-7.0); HEMATOCRIT 41.4 % (42.0-52.0); HEMOGLOBIN 14.4 g/dl (14.0-18.0); IMMATURE GRANULOCYTE % (AUTO) 0.4 % (0.0-5.0); LYMPHOCYTES # (AUTO) 2.5 K/uL (0.60-3.4); LYMPHOCYTES % (AUTO) 32.9 (10.0-50.0); MEAN CORPUSCULAR HEMOGLOBIN 30.8 pg (27.0-31.0); MEAN CORPUSCULAR HGB CONC 34.8 (31.8-35.4); MEAN CORPUSCULAR VOLUME 88.5 fl (80.0-94.0); MONOCYTES # (AUTO) 0.6 K/uL (0.4-2.0); MONOCYTES % (AUTO) 8.3 (0-10); NEUTROPHILS # (AUTO) 4.1 K/ul (2.0-6.9); NEUTROPHILS % (AUTO) 53.5; PLATELET COUNT 183 10^3/uL (140-440); RED BLOOD COUNT 4.68 10^6/ul (4.70-6.10); WHITE BLOOD COUNT 7.67 K/ul (4.2-10.2)
[2017-08-06 09:56] LABS: RETICULOCYTE % 1.18 %
[2017-08-06 10:50] LABS: FERRITIN 161.43 ng/mL (21.81-274.66); FOLATE 8.6 ng/mL (3.1-20.5)
== END 2017-08-06 09:17 | disposition home or self-care (01) ==
LOC: LAB 09:16
PROVIDERS: ATTEND Emergency Medicine
DX: D64.89 Other specified anemias (principal)
CPT/HCPCS: 36415; 82607; 82728; 82746; 83540; 83550; 84466; 85025; 85045

== ENCOUNTER 2018-11-19 10:40 | Outpatient (CLI) | END 2018-11-19 10:41 | disposition home or self-care (01) | LOC: RHC-LAB 10:40 | PROVIDERS: ATTEND Nurse Practitioner Family | DX: F41.1 Generalized anxiety disorder (principal); Z83.2 Family history of diseases of the blood and blood-forming organs and certain disorders involving the immune mechanism | CPT/HCPCS: 36415; 80053; 84443; 85025 ==

== ENCOUNTER 2018-11-27 11:38 | Emergency (ER) ==
[2018-11-27 11:48] VITALS: BP 132/89; BMI 22.4
[2018-11-27] MEDS ORDERED: SODIUM CHLORIDE 1,000 ML IV STA ×2 (12:40→17:31)
[2018-11-27] MEDS ORDERED: ZOFRAN 4 MG/2 ML IVP STA (12:44)
--- NOTE | 2018-11-27 12:45 | ED.PDOC ---
General ED Provider: Dr. KIMBERLY ADAMS Chief Complaint: Nausea/Vomiting Stated Complaint: Severe abdomninal cramping and pain with nausea,vomiting and diarrhea. Sudden onset this morning. Time Seen by Physician: 12:15 Mode of Arrival: Walk-In Information Source: Patient Exam Limitations: No limitations Primary Care Provider: GLENDA MOROCHO Nursing and Triage Documentation Reviewed and Agree: Yes Does patient meet sepsis criteria?: No System Inflammatory Response Syndrome: Not Applicable Sepsis Protocol: For patient's 13 years and over: Temp is 96.8 and below OR 101 and greater Pulse >90 BPM Resp >20/minute Acutely Altered Mental Status Are patient's symptoms suggestive of a new infection, such as: -Pneumonia -Skin, Soft Tissue -Endocarditis -UTI -Bone, Joint Infection -Implantable Device -Acute Abdominal Infection -Wound Infection -Meningitis -Blood Stream Catheter Infection -Unknown GI Complaint Exam - Vomiting/Diarrhea Complaint/Exam Onset/Duration: earlier this morning-awakened with severe nausea followed by onset of vomii Review of Systems - Review Of Systems Constitutional: Reports: No symptoms Eyes: Reports: No symptoms Ears, Nose, Mouth, Throat: Reports: No symptoms Respiratory: Reports: No symptoms Cardiac: Reports: No symptoms GI: Reports: Diarrhea, Nausea, Vomiting : Reports: No symptoms Musculoskeletal: Reports: No symptoms Skin: Reports: No symptoms Neurological: Reports: No symptoms Endocrine: Reports: No symptoms Hematologic/Lymphatic: Reports: No symptoms All Other Systems: Reviewed and Negative Past Medical History - Past Medical History Previously Healthy: Yes Endocrine: Reports: None Cardiovascular: Reports: None Respiratory: Reports: None Hematological: Reports: None Gastrointestinal: Reports: None Genitourinary: Reports: None Neuro/Psych: Reports: None Musculoskeletal: Reports: None Cancer: Reports: None - Surgical History General Surgical History: Reports: None - Family History Family History: Reports: Unknown - Social History Smoking Status: Former smoker, Light tobacco smoker Hx Substance Use: No Alcohol Screening: None Physical Exam - Physical Exam Appearance: Ill-appearing Ill-appearing: Mild Pain Distress: None Eyes: BLAYNE, EOMI, Conjunctiva clear ENT: Ears normal, Nose normal, Oropharynx normal Neck: Supple Respiratory: Airway patent, Breath sounds clear, Breath sounds equal, Respirations nonlabored Cardiovascular: RRR, Pulses normal, No rub, No murmur GI/: Soft, No masses, Tender, Bowel sounds hypoactive Musculoskeletal: Normal strength, ROM intact, No edema, No calf tenderness Skin: Warm, Dry, Normal color Neurological: Sensation intact, Motor intact, Reflexes intact, Cranial nerves intact, Alert, Oriented Psychiatric: Affect appropriate, Mood appropriate Critical Care Note - Critical Care Note Total Time (mins): 60 Course - Course Hematology/Chemistry: 11/27/18 13:00 11/27/18 13:00 Orders, Labs, Meds: Lab Review 11/27/18 11/27/18 11/27/18 13:00 13:00 15:10 WBC 18.97 H RBC 5.74 Hgb 17.2 Hct 50.8 MCV 88.5 MCH 30.0 MCHC 33.9 RDW Coeff of Renetta 13.3 Plt Count 222 Immature Gran % (Auto) 0.6 Neut % (Auto) 88.5 Lymph % (Auto) 6.3 L [place] % (Auto) 3.7 Eos % (Auto) 0.6 Baso % (Auto) 0.3 Immature Gran # (Auto) 0.1 Neut # (Auto) 16.8 H Lymph # (Auto) 1.2 [place] # (Auto) 0.7 Eos # (Auto) 0.1 Baso # (Auto) 0.1 Sodium 141.6 Potassium 4.59 Chloride 104.0 Carbon Dioxide 22.9 Anion Gap 19.29 BUN 12.1 Creatinine 1.16 H Estimated GFR (MDRD) 73.00 BUN/Creatinine Ratio 10.43 Glucose 108.5 H Calcium 10.51 H Magnesium 1.65 Total Bilirubin 0.54 AST 36.8 ALT 40.1 Alkaline Phosphatase 102.4 Total Protein 8.96 H Albumin 5.78 H Globulin 3.18 Albumin/Globulin Ratio 1.81 Amylase 110.0 Urine Color Urine Clarity Urine pH Ur Specific Mayo Urine Protein Urine Glucose (UA) Urine Ketones Urine Blood Urine Nitrite Urine Bilirubin Urine Urobilinogen Ur Leukocyte Esterase Ur Squamous Epith Cells Urine Mucus Urine Opiates Screen Negative Ur Oxycodone Screen Negative Urine Methadone Screen Negative Ur Propoxyphene Screen Negative Ur Barbiturates Screen Negative U Tricyclic Antidepress Negative Ur Phencyclidine Scrn Negative Ur Amphetamine Screen Negative U Methamphetamines Scrn Negative U Benzodiazepines Scrn Negative Urine Cocaine Screen Negative U Cannabinoids Screen Positive 11/27/18 15:10 WBC RBC Hgb Hct MCV MCH MCHC RDW Coeff of Renetta Plt Count Immature Gran % (Auto) Neut % (Auto) Lymph % (Auto) [place] % (Auto) Eos % (Auto) Baso % (Auto) Immature Gran # (Auto) Neut # (Auto) Lymph # (Auto) [place] # (Auto) Eos # (Auto) Baso # (Auto) Sodium Potassium Chloride Carbon Dioxide Anion Gap BUN Creatinine Estimated GFR (MDRD) BUN/Creatinine Ratio Glucose Calcium Magnesium Total Bilirubin AST ALT Alkaline Phosphatase Total Protein Albumin Globulin Albumin/Globulin Ratio Amylase Urine Color Yellow Urine Clarity Clear Urine pH 5.5 Ur Specific Mayo 1.025 Urine Protein 2+ Urine Glucose (UA) Negative Urine Ketones Negative Urine Blood Negative Urine Nitrite Negative Urine Bilirubin Negative Urine Urobilinogen 0.2 Ur Leukocyte Esterase Negative Ur Squamous Epith Cells Not present Urine Mucus 2+ Urine Opiates Screen Ur Oxycodone Screen Urine Methadone Screen Ur Propoxyphene Screen Ur Barbiturates Screen U Tricyclic Antidepress Ur Phencyclidine Scrn Ur Amphetamine Screen U Methamphetamines Scrn U Benzodiazepines Scrn Urine Cocaine Screen U Cannabinoids Screen Orders Category Date Time Status IV [ED IV/MEDIPORT/POWERPORT] .ONCE EMERGENCY 11/27/18 12:40 Active AMYLASE Stat LAB 11/27/18 13:00 Completed BLOOD CULTURE (ED ONLY) Stat LAB 11/27/18 13:00 Results CBC W/ AUTO DIFF Stat LAB 11/27/18 13:00 Completed CMP [COMPREHENSIVE METABOLIC PANEL] Stat LAB 11/27/18 13:00 Completed MAGNESIUM Stat LAB 11/27/18 13:00 Completed UA [URINALYSIS C & S IF INDICATED] Stat LAB 11/27/18 15:10 Completed URINE DRUG SCREEN (RAPID FOR ED) [DRUG SCREEN, URINE, LAB 11/27/18 15:10 Completed RAPID] Stat 0.9 % Sodium Chloride [Saline Flush] MEDS 11/27/18 12:40 Discontinued 1 syr IVF PRN PRN Famotidine Inj [Pepcid] MEDS 11/27/18 17:32 Discontinued 20 mg IVP ONCE STA Ondansetron HCl/Pf [Zofran 4 mg/2 ml] MEDS 11/27/18 12:44 Discontinued 4 mg IVP ONCE STA Promethazine HCl [Phenergan 25 mg/ml Vial] MEDS 11/27/18 16:32 Discontinued 25 mg IM ONCE STA Sodium Chloride 0.9% [Sodium Chloride] 1,000 ml MEDS 11/27/18 12:40 Discontinued IV BOLUS Sodium Chloride 0.9% [Sodium Chloride] 1,000 ml MEDS 11/27/18 17:[address] ABDOMEN/PELVIS WO CONTRAST Stat RADS 11/27/18 12:41 Completed Medications Discontinued Medications Generic Name Dose Route Start Last Admin Trade Name Freq PRN Reason Stop Dose Admin Famotidine 20 mg 11/27/18 17:32 11/27/18 17:41 Pepcid IVP 11/27/18 17:33 20 mg ONCE STA Administration Sodium Chloride 1,000 mls @ 500 mls/hr 11/27/18 12:40 11/27/18 13:07 Sodium Chloride IV 11/27/18 14:39 500 mls/hr BOLUS STA Administration Sodium Chloride 1,000 mls @ 1,000 mls/hr 11/27/18 17:31 11/27/18 17:40 Sodium Chloride IV 11/27/18 18:30 1,000 mls/hr BOLUS STA Administration Ondansetron HCl 4 mg 11/27/18 12:44 11/27/18 13:07 Zofran 4 Mg/2 Ml IVP 11/27/18 12:45 4 mg ONCE STA Administration Promethazine HCl 25 mg 11/27/18 16:32 11/27/18 16:59 Phenergan 25 Mg/Ml Vial IM 11/27/18 16:33 25 mg ONCE STA Administration Sodium Chloride 1 syr 11/27/18 12:40 11/27/18 17:31 Saline Flush IVF 1 syr PRN PRN Administration To flush IV Vital Signs: Temp Pulse Resp BP Pulse Ox 11/27/18 17:50 98.2 F 11/27/18 11:39 97.9 F 82 20 132/89 97 Departure - Departure Time of Disposition: 18:30 Disposition: TSF TO PSYCH HOSP/UNIT Discharge Problem: Gastroenteritis, Dehydration Instructions: Dehydration (ED), Gastroenteritis (ED) Condition: Good Pt referred to PMD for follow-up: Yes (See provider in next week) IPMP verified?: No Additional Instructions: Follow up with your PCP Take medication as prescribed Remain well hydrated and resume daily activities per toleranc Prescriptions: Ondansetron [Zofran Odt] 4 mg PO Q8H #10 tab.rapdis Allergies/Adverse Reactions: Allergies steroids Adverse Reaction (Uncoded 11/27/18 11:45) anxiety Home Medications: Ambulatory Orders Ondansetron [Zofran Odt] 4 mg PO Q8H #10 tab.rapdis 11/27/18 Disposition Discussed With: Patient Additional Information: 1700 Intially feeling well and improved after infusion of IV fluids; Was able to take small amounts of water however after 30 min patient experience recurrent N-V-D Feeling bad and weak again Additional IV fluids were initiated and administered. After infusion patient feeling much better. Given small amounts of clear liquids/tolerated well without recurrent symptoms 1830 Feeling much better. Ready for discharge to home Sipping on clear liquids
--- NOTE | 2018-11-27 13:56 | CT ---
EXAM: CT ABDOMEN AND PELVIS HISTORY: Abdominal pain TECHNIQUE: CT abdomen and pelvis without intravenous contrast. Images were reconstructed using 5 mm section thickness. Reformations were prepared. COMPARISON: 07/07/2017 FINDINGS: Diagnostic limitations may exist without including contrast enhanced images. The liver, spleen, gall bladder, pancreas, adrenal glands, kidneys and ureters appear normal. Minimal vascular calcification . No appendix is identified. Apparent surgical clips near the cecal tip. There is fluid consistency s tool within the rectum consistent with diarrhea. There is no current CT evidence of active enterocol itis or bowel obstruction. Urinary bladder and prostate appear normal. There is no ascites or infla mmatory infiltration of the abdominal fat. Ventral abdominal wall is intact without herniation. Bones appear appropriate for age. Lung bases a re clear. There is no pneumoperitoneum. IMPRESSION: There is fluid consistency stool within the rectum consistent with diarrhea. There is no current CT evidence of active enterocolitis or bowel obstruction. Otherwise grossly unremarkable exam.
[2018-11-27] MEDS ORDERED: PHENERGAN 25 MG/ML VIAL IM STA (16:32)
[2018-11-27] MEDS ORDERED: PEPCID IVP STA (17:32)
[2018-11-27 17:50] VITALS: TEMP 98.2
== END 2018-11-27 18:48 ==
LOC: ED 11:38
DX: K52.9 Noninfective gastroenteritis and colitis, unspecified (principal); E86.0 Dehydration; F17.210 Nicotine dependence, cigarettes, uncomplicated
CPT/HCPCS: 36415; 80053; 80306; 81001; 82150; 83735; 85025; 87040; 96361; 96365; 96372; 96374; 96375; 99283

== ENCOUNTER 2018-12-22 07:57 | Emergency (ER) ==
[2018-12-22 08:03] VITALS: BP 145/91; TEMP 98.5; BMI 21.3
[2018-12-22] MEDS ORDERED: ASPIRIN EC PO STA (08:20)
--- NOTE | 2018-12-22 08:51 | DI ---
EXAM: Two views of the chest. History: Chest pain. Comparison: Chest radiograph 05/16/2017 Findings: Heart size is normal. No focal consolidation. No appreciable pleural fluid and no pneumo thorax. No acute osseous abnormalities. Impression: No acute cardiopulmonary process
--- NOTE | 2018-12-22 09:33 | ED.PDOC ---
General ED Provider: Dr. REDD ALBERTO Chief Complaint: Chest Pain Stated Complaint: chest pain Time Seen by Physician: 08:00 (RN PRESENT AT ALL TIMES AYLEEN PRESENT FROM RESP DEPT) Mode of Arrival: Walk-In Information Source: Patient Exam Limitations: No limitations Primary Care Provider: GISELLE GIMENEZ Nursing and Triage Documentation Reviewed and Agree: Yes Does patient meet sepsis criteria?: No System Inflammatory Response Syndrome: Not Applicable Sepsis Protocol: For patient's 13 years and over: Temp is 96.8 and below OR 101 and greater Pulse >90 BPM Resp >20/minute Acutely Altered Mental Status Are patient's symptoms suggestive of a new infection, such as: -Pneumonia -Skin, Soft Tissue -Endocarditis -UTI -Bone, Joint Infection -Implantable Device -Acute Abdominal Infection -Wound Infection -Meningitis -Blood Stream Catheter Infection -Unknown Cardiovascular Complaint Exam - Chest Pain Complaint/Exam Onset: Sudden Duration: 6 AM WOKE PT UP WITH 10/10 CHEST PAIN Symptoms Are: Resolved Length of Chest Pain Episodes: PT IS UNSURE Initial Severity: Severe Current Severity: None Location: Reports: Midsternal Pain Radiates: Reports: None Character: Reports: Aching Aggravating: Reports: None Alleviating: Reports: None Associated Signs and Symptoms: Reports: Diaphoresis. Denies: Nausea, Vomiting, Fever, Palpitations, Cough, Hemoptysis, Back pain, Abdominal pain, Dizziness, Short of air, Calf pain, Calf swelling Related Surgical History: Reports: None History of Healthcare-Acquired Pneumonia: Reports: No AMI/ACS Risk Factors: Reports: None TAD Risk Factors: Reports: None Pulmonary Embolism Risk Factors: Reports: None Prior Care for this Complaint: No Recent Stress Test: No Recent Echo/LV Function: No JVD Present: No Subcutaneous Emphysema Present: No Diminshed Breath Sounds: No Reproducible Chest Wall Pain: No Bilateral Pulses Present: No Unequal Pulses Noted: No If Risk Factors for AMI/ACS Consider: EKG, Cardiac Enzymes Differential Diagnoses: Unstable Angina, GI Diseasae, Lower Resp. Infection Quality Indicator For Non-Traumatic Chest Pain/Syncope: EKG Performed Review of Systems - Review Of Systems Constitutional: Reports: No symptoms Eyes: Reports: No symptoms Ears, Nose, Mouth, Throat: Reports: No symptoms Respiratory: Reports: No symptoms Cardiac: Reports: Chest pain GI: Reports: No symptoms : Reports: No symptoms Musculoskeletal: Reports: No symptoms Skin: Reports: No symptoms Neurological: Reports: No symptoms Endocrine: Reports: No symptoms Hematologic/Lymphatic: Reports: No symptoms All Other Systems: Reviewed and Negative Past Medical History - Past Medical History Previously Healthy: Yes Endocrine: Reports: None Cardiovascular: Reports: None Respiratory: Reports: None Hematological: Reports: None Gastrointestinal: Reports: None Genitourinary: Reports: None Neuro/Psych: Reports: None Musculoskeletal: Reports: None Cancer: Reports: None - Surgical History General Surgical History: Reports: None - Family History Family History: Reports: Unknown - Social History Smoking Status: Former smoker Hx Substance Use: No Alcohol Screening: None Physical Exam - Physical Exam Appearance: Well-appearing, No pain distress, Well-nourished Eyes: BLAYNE, EOMI, Conjunctiva clear ENT: Ears normal, Nose normal, Oropharynx normal Respiratory: Airway patent, Breath sounds clear, Breath sounds equal, Respirations nonlabored Cardiovascular: RRR, Pulses normal, No rub, No murmur GI/: Soft, Nontender, No masses, Bowel sounds normal, No Organomegaly Musculoskeletal: Normal strength, ROM intact, No edema, No calf tenderness Skin: Warm, Dry, Normal color Neurological: Sensation intact, Motor intact, Reflexes intact, Cranial nerves intact, Alert, Oriented Psychiatric: Affect appropriate, Mood appropriate Interpretation - Radiology Interpretation Radiology Interpretation By: Radiologist Radiology Results: No acute changes - Undraped Artist Model Rate: Normal Rhythm: Sinus Ectopy: None - EKG Interpretation Rate: Normal Rhythm: Sinus Ectopy: None Martin: NL ST Segment: Normal Re-Evaluation - Re-Evaluation Time of Re-Evaluation: 09:34 (PT REFUSED ADMISSION , RISK OF STROKE OK, DISCUSSED AWARE AND REFUSING ADMITT) Status: Improved Vital Signs Stable: Yes Pain Level: 0 Appearance: NAD Lungs: Clear Skin: Warm and Dry Neuro: Alert and Oriented X3 CV: RRR Additional Comments: LUIS AT BEDSIDE ADMISSION DISCUSSED LABS AND EKG DISCUSSED WITH THE PT. Critical Care Note - Critical Care Note Total Time (mins): 0 Course - Course Hematology/Chemistry: 12/22/18 08:28 12/22/18 08:28 Orders, Labs, Meds: Lab Review 12/22/18 12/22/18 12/22/18 08:28 08:28 08:28 WBC 6.99 RBC 4.71 Hgb 14.4 Hct 41.5 L MCV 88.1 MCH 30.6 MCHC 34.7 RDW Coeff of Renetta 13.2 Plt Count 215 Immature Gran % (Auto) 0.1 Neut % (Auto) 54.1 Lymph % (Auto) 33.0 [place] % (Auto) 9.4 Eos % (Auto) 3.0 Baso % (Auto) 0.4 Immature Gran # (Auto) 0.0 Neut # (Auto) 3.8 Lymph # (Auto) 2.3 [place] # (Auto) 0.7 Eos # (Auto) 0.2 Baso # (Auto) 0.0 PT 10.8 INR 1.08 APTT 29.0 D-Dimer (Manual) Sodium 139.6 Potassium 3.72 Chloride 106.2 Carbon Dioxide 25.0 Anion Gap 12.12 BUN 8.9 L Creatinine 1.00 Estimated GFR (MDRD) 87.00 BUN/Creatinine Ratio 8.90 Glucose 98.8 Calcium 9.24 Total Bilirubin 0.69 AST 26.4 ALT 21.9 Alkaline Phosphatase 81.5 Total Creatine Kinase 92.7 Troponin I < 0.012 Total Protein 6.95 Albumin 4.75 Globulin 2.20 Albumin/Globulin Ratio 2.15 12/22/18 08:28 WBC RBC Hgb Hct MCV MCH MCHC RDW Coeff of Renetta Plt Count Immature Gran % (Auto) Neut % (Auto) Lymph % (Auto) [place] % (Auto) Eos % (Auto) Baso % (Auto) Immature Gran # (Auto) Neut # (Auto) Lymph # (Auto) [place] # (Auto) Eos # (Auto) Baso # (Auto) PT INR APTT D-Dimer (Manual) 410.74 Sodium Potassium Chloride Carbon Dioxide Anion Gap BUN Creatinine Estimated GFR (MDRD) BUN/Creatinine Ratio Glucose Calcium Total Bilirubin AST ALT Alkaline Phosphatase Total Creatine Kinase Troponin I Total Protein Albumin Globulin Albumin/Globulin Ratio Orders Category Date Time Status EKG-(ED ONLY) Stat CARDIO 12/22/18 08:20 Completed CBC W/ AUTO DIFF Stat LAB 12/22/18 08:28 Completed COMPREHENSIVE METABOLIC PANEL Stat LAB 12/22/18 08:28 Completed CREATINE KINASE Stat LAB 12/22/18 08:28 Completed D-DIMER Stat LAB 12/22/18 08:28 Completed PARTIAL THROMBOPLASTIN TIME Stat LAB 12/22/18 08:28 Completed PT WITH INR Stat LAB 12/22/18 08:28 Completed TROPONIN I Stat LAB 12/22/18 08:28 Completed URINE DRUG SCREEN (RAPID FOR ED) [DRUG SCREEN, URINE, LAB 12/22/18 08:22 Uncollected RAPID] Stat Aspirin [Aspirin EC] MEDS 12/22/18 08:20 Discontinued 325 mg PO ONCE STA CHEST, 2 VIEWS PA & LAT Stat RADS 12/22/18 08:19 Completed Medications Discontinued Medications Generic Name Dose Route Start Last Admin Trade Name Desmond PRN Reason Stop Dose Admin Aspirin 325 mg 12/22/18 08:20 12/22/18 08:27 Aspirin Ec PO 12/22/18 08:21 325 mg ONCE STA Administration Vital Signs: Temp Pulse Resp BP Pulse Ox 12/22/18 07:59 98.5 F 82 16 145/91 H 98 BALBIR Risk Score BALBIR Risk Score: Risk Score Odds of by 30D 0 0.1 (0.1-0.2) 1 0.3 (0.2-0.3) 2 0.4 (0.3-0.5) 3 0.7 (0.6-0.9) 4 1.2 (1.0-1.5) 5 2.2 (1.9-2.6) 6 3.0 (2.5-3.6) 7 4.8 (3.8-6.1) Departure - Departure Time of Disposition: 09:33 Disposition: AMA Discharge Problem: Chest pain Instructions: Angina (ED), Chest Pain (DC), Chest Pain (ED), Angina (DC) Condition: Good Pt referred to PMD for follow-up: Yes IPMP verified?: No Additional Instructions: Please call your Family Physician as soon as possible to schedule a follow-up appointment.THIS PATTERN OF PAIN IS CONSISTENT WITH A POTENTIAL HEART DISEASE . YOU GAIN NOTHING BY LEAVING AGAINST DOCTOR'S ORDERS . YOU RUN THE RISK OF SUDDEN . YOU MUST SEEK HELP IMMIDEATELY IF PAIN RETURN AND MAKE SURE YOU FOLLOW UP WITH THE CLINIC SOON POSSIBLE. Allergies/Adverse Reactions: Allergies steroids Adverse Reaction (Uncoded 12/22/18 07:58) anxiety Disposition Discussed With: Patient
== END 2018-12-22 10:07 | disposition left against medical advice (07) ==
LOC: ED 07:57
DX: R07.9 Chest pain, unspecified (principal)
CPT/HCPCS: 36415; 80053; 82550; 84484; 85025; 85379; 85610; 85730; 93005; 93010; 99284